=== PATIENT | female | born 1955 | race Caucasian/White ===

== ENCOUNTER 2017-12-31 21:37 | Emergency (ER) | payer OTHER ==
[~2017-12-31] VITALS: Ht 165.1 cm; Wt 71.8 kg
--- NOTE | 2017-12-31 21:48 | ED.ADGEN ---
Adult General Chief Complaint Chief Complaint ".. I slipped and fell on the sidewalk at [employer]..." " I think my knee is dislocated..." ( Rt.) HPI HPI Patient is a 62 year old female who presents with above hx and complaints. Pt. has obvious dislocated and fractured patella. Knee is locked in 40-45 degrees. Edema and contusion to skin of knee. . Pt. complaints of 10/10 pain. Pt. denies any dizziness or syncopal. States she just tripped. 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 Pt. then received chemo therapy and bone marrow transplant in 2017. Pt. has continue cancer chemo tx. every other Tuesday. Pt. states cancer was found on physical exam for work. No metastatic lesions have been reportedly found. Pt. has follow at [facility] and associated clinics. Pt. does have some chronic neuropathy for chemo therapy. Review of Systems Review of Systems Constitutional: Denies fever or chills [] Eyes: Denies change in visual acuity, redness, or eye pain [] HENT: Denies nasal congestion or sore throat [] Respiratory: Denies cough or shortness of breath [] Cardiovascular: No additional information not addressed in HPI [] GI: Denies abdominal pain, nausea, vomiting, bloody stools or diarrhea [] : Denies dysuria or hematuria [] Musculoskeletal: Denies back pain or joint pain []Except complaints of severe Rt. knee pain as per HPI Integument: Denies rash or skin lesions [] Neurologic: Denies headache, focal weakness or sensory changes [] Endocrine: Denies polyuria or polydipsia [] All other systems were reviewed and found to be within normal limits, except as documented in this note. Family History Family History Non contributory Current Medications Current Medications Current Medications Medications (Trade) Dose Ordered Sig/Alexa Start Time Stop Time Status Last Admin Dose Admin Lactated Ringer's 1,000 ml @ 1,000 mls/hr Q1H 12/31/17 22:00 12/31/17 22:59 DC 12/31/17 22:00 1,000 MLS/HR Morphine Sulfate (Morphine 10mg Syringe) 10 mg 1X ONCE 12/31/17 22:15 12/31/17 22:16 DC 12/31/17 22:33 10 MG Morphine Sulfate (Morphine 4mg Syringe) 4 mg STK-MED ONCE 12/31/17 22:25 12/31/17 22:26 DC Ondansetron HCl (Zofran Odt) 8 mg 1X ONCE 01/01/18 00:15 01/01/18 01:02 DC 01/01/18 00:16 8 MG Propofol 20 ml @ 0 mls/hr 1X ONCE 12/31/17 22:15 12/31/17 22:16 DC 12/31/17 23:16 1 MLS/HR Tetanus/ Diphtheria Toxoids Adsorbed (Tenivac Vial) 0.5 ml ONCE ONCE 12/31/17 22:15 12/31/17 22:16 DC Allergies Allergies Allergies Coded Allergies Type Severity Reaction Last Updated Verified aspirin Allergy Severe Anaphylaxis 12/31/17 Yes Physical Exam Physical Exam Constitutional: in severe distress, non-toxic appearance. [] HENT: Normocephalic, atraumatic, bilateral external ears normal, oropharynx moist, no oral exudates, nose normal. Poor dentition. Eyes: PERRLA, EOMI, conjunctiva normal, no discharge. [] Glasses. Neck: Normal range of motion, no tenderness, supple, no stridor. [] Cardiovascular:Heart rate regular rhythm, no murmur [] Lungs & Thorax: Bilateral breath sounds equal at apex. auscultation [] Abdomen: Bowel sounds normal, soft, no tenderness, no masses, no pulsatile masses. Scar. Skin: Warm, dry, no erythema, no rash. Abrasion of Rt knee. Back: No tenderness, no CVA tenderness. [] Extremities: No tenderness, no cyanosis, no clubbing, ROM intact, no edema. [] Rt. arm weakness- chronic defect. Rt. Knee pain as per HPI. Neurologic: Alert and oriented X 3, unable to bend or extend Rt. Knee-locked in position. decreased plantar sensory function, no focal deficits noted from base line per pt. except severe knee pain. Psychologic: Affect anxious, judgement normal, mood depressed. Current Patient Data Vital Signs Vital Signs Date Time Temp Pulse Resp B/P (MAP) Pulse Ox O2 Delivery O2 Flow Rate FiO2 01/01/18 01:00 72 14 113/65 (81) 96 Room Air 01/01/18 00:30 98.2 12/31/17 23:40 2.0 Lab Results Laboratory Tests Test 12/31/17 21:50 12/31/17 23:55 White Blood Count 7.4 x10^3/uL (4.0-11.0) Red Blood Count 4.33 x10^6/uL (3.50-5.40) Hemoglobin 13.0 g/dL (12.0-15.5) Hematocrit 38.2 % (36.0-47.0) Mean Corpuscular Volume 88 fL (79-100) Mean Corpuscular Hemoglobin 30 pg (25-35) Mean Corpuscular Hemoglobin Concent 34 g/dL (31-37) Red Cell Distribution Width 13.6 % (11.5-14.5) Platelet Count 200 x10^3/uL (140-400) Neutrophils (%) (Auto) 48 % (31-73) Lymphocytes (%) (Auto) 42 % (24-48) Monocytes (%) (Auto) 7 % (0-9) Eosinophils (%) (Auto) 3 % (0-3) Basophils (%) (Auto) 0 % (0-3) Neutrophils # (Auto) 3.6 x10^3uL (1.8-7.7) Lymphocytes # (Auto) 3.1 x10^3/uL (1.0-4.8) Monocytes # (Auto) 0.5 x10^3/uL (0.0-1.1) Eosinophils # (Auto) 0.2 x10^3/uL (0.0-0.7) Basophils # (Auto) 0.0 x10^3/uL (0.0-0.2) Prothrombin Time 10.4 SEC (9.4-11.4) Prothrombin Time INR 1.0 (0.9-1.1) PTT 24 SEC (23-33) Sodium Level 144 mmol/L (136-145) Potassium Level 3.6 mmol/L (3.5-5.1) Chloride Level 106 mmol/L (98-107) Carbon Dioxide Level 28 mmol/L (21-32) Anion Gap 10 (6-14) Blood Urea Nitrogen 16 mg/dL (7-20) Creatinine 1.4 mg/dL (0.6-1.0) H Estimated GFR (Cockcroft-Gault) 37.9 Glucose Level 115 mg/dL (70-99) H Calcium Level 8.3 mg/dL (8.5-10.1) L Total Bilirubin 0.9 mg/dL (0.2-1.0) Direct Bilirubin 0.2 mg/dL (0.0-0.2) Aspartate Amino Transferase (AST) 16 U/L (15-37) Alanine Aminotransferase (ALT) 15 U/L (14-59) Alkaline Phosphatase 81 U/L (46-116) Total Protein 7.2 g/dL (6.4-8.2) Albumin 3.6 g/dL (3.4-5.0) Urine Collection Type Void Urine Color Straw Urine Clarity Hazy Urine pH 6.0 Urine Specific Buhl 1.015 Urine Protein Neg (NEG-TRACE) Urine Glucose (UA) Neg mg/dL (NEG) Urine Ketones (Stick) Neg mg/dL (NEG) Urine Blood Mod (NEG) Urine Nitrite Neg (NEG) Urine Bilirubin Neg (NEG) Urine Urobilinogen Dipstick 0.2 mg/dL (0.2 mg/dL) Urine Leukocyte Esterase Small (NEG) Urine RBC 6-10 /HPF (0-2) Urine WBC 11-20 /HPF (0-4) Urine Squamous Epithelial Cells Few /LPF Urine Bacteria Mod /HPF (0-FEW) Urine Opiates Screen Pos (NEG) Urine Methadone Screen Neg (NEG) Urine Barbiturates Neg (NEG) Urine Phencyclidine Screen Neg (NEG) Urine Amphetamine/Methamphetamine Neg (NEG) Urine Benzodiazepines Screen Neg (NEG) Urine Cocaine Screen Neg (NEG) Urine Cannabinoids Screen Neg (NEG) Urine Ethyl Alcohol Neg (NEG) EKG EKG My interpretation of EKG shows a sinus rhythm at 77 bpm. She does have occasional PVC. This was nonspecific contour changes in anterior lateral leads. There is some baseline artifact. No findings acute STEMI of contralateral changes. Radiology/Procedures Radiology/Procedures My interpretation of chest x-ray shows borderline cardiac silhouette. No acute cardiopulmonary findings. My interpretation of knee films shows knees flexed and has an acute transverse fracture of the patella. My interpretation of post reduction films and splinting shows patella fracture with some reduction in fracture fragment separation. See formal report when available.[] Course & Med Decision Making Course & Med Decision Making Pertinent Labs and Imaging studies reviewed. (See chart for details) 1. Fall because of Tripping. 2. Fracture and Dislocated Patella 3. Hx. of Osteo carcinoma of Spine- Radiation and Chemo therapy- every other Tuesday 4. Elevated Creatine 5. Possible UTI- Elevated WBC, Neg. Nitrates- Squamous [] Final Impression Final Impression Conscious Sedation- Reduction and Splint Placement- Rt. Knee: See Sedation report. Pt. has hx. of Tea at approximately 4 hrs. ago. Mallampati 1-2, Poor dentition. Pt. received 41 mg of propofol in titrated increments. Blocked knee was reduced and splinted. Distal neurovascular intact post. Capillary refill less than 3 seconds in toes and equal to left foot. Pt. report marked reduction in pain. Discussed presentation, testing and treatment plan with - [facility] she will accept pt in transfer. Dr. Laurent Hayden. advise he will take her to surgery at 0800. Keep pt. NPO Pt. to go to [facility]. Relative Gabrielle Stephens can speak for pt. [phone] Landen Disclaimer Landen Disclaimer This electronic medical record was generated, in whole or in part, using a voice recognition dictation system. NICOLE LAU MD December 31, 2017 21:48
[2017-12-31] MEDS ORDERED: IV RINGERS SOLUTION,LACTATED 1,000 ML IV SCH (22:00)
[2017-12-31] MEDS ORDERED: [UNRECOGNIZED DRUG - OTHER] (22:05)
[2017-12-31] MEDS ORDERED: CHEMO DRUGS (22:05)
[2017-12-31] MEDS ORDERED: vitamins (22:05)
[2017-12-31 22:10] LABS: BASO % 0 % (0-3); EOS # 0.2 x10^3/uL (0.0-0.7); EOS % 3 % (0-3); HEMATOCRIT 38.2 % (36.0-47.0); LYMPH # 3.1 x10^3/uL (1.0-4.8); LYMPH % 42 % (24-48); MEAN CORPUSCULAR HEMOGLOBIN 30 pg (25-35); MEAN CORPUSCULAR HGB CONC 34 g/dL (31-37); MEAN CORPUSCULAR VOLUME 88 fL (79-100); MONO # 0.5 x10^3/uL (0.0-1.1); MONO % 7 % (0-9); NEUT # 3.6 x10^3uL (1.8-7.7); NEUT % 48 % (31-73); PLATELET COUNT 200 x10^3/uL (140-400); RED BLOOD COUNT 4.33 x10^6/uL (3.50-5.40); RED CELL DISTRIBUTION WIDTH 13.6 % (11.5-14.5); WHITE BLOOD COUNT 7.4 x10^3/uL (4.0-11.0)
[2017-12-31] MEDS ORDERED: PROPOFOL 20 ML IV ONE (22:15)
[2017-12-31] MEDS ORDERED: TETANUS AND DIPHTHERIA TOX/PF 0.5 ML VIAL. VAX IM ONE (22:15)
[2017-12-31] MEDS ORDERED: MORPHINE SULFATE 10 MG/ML SYRINGE. SQ ONE (22:15)
[2017-12-31 22:21] LABS: ALBUMIN 3.6 g/dL (3.4-5.0); CALCIUM 8.3 mg/dL (8.5-10.1); CREATININE 1.4 mg/dL (0.6-1.0); DIRECT BILIRUBIN 0.2 mg/dL (0.0-0.2); GFR 37.9; POTASSIUM 3.6 mmol/L (3.5-5.1); TOTAL BILIRUBIN 0.9 mg/dL (0.2-1.0); TOTAL PROTEIN 7.2 g/dL (6.4-8.2)
[2017-12-31] MEDS ORDERED: MORPHINE SULFATE 4 MG/ML DISP.SYRIN. ONE (22:25)
--- NOTE | 2017-12-31 23:19 | RAD ---
Right knee AP and lateral x-rays HISTORY: Right knee injury and pain, postreduction. FINDINGS: The knee is fixed in flexion limiting AP imaging. There is an acute traumatic transverse fracture of the patella with the superior and inferior fracture fragments distracted by 6 cm across the distal femur. No fracture of the distal femur, proximal tibia or proximal fibula at the knee evident. IMPRESSION: Acute traumatic distracted fracture of the patella. AP chest x-ray HISTORY: Pain. FINDINGS: Heart size upper limits of normal. Mediastinal silhouette is normal. No pneumothorax, pulmonary opacities or pleural effusions. The bones are unremarkable. IMPRESSION: No acute process in the chest. Electronically signed by: Alejo Snider MD (12/31/2017 11:16 PM) [facility]
--- NOTE | 2018-01-01 00:07 | RAD ---
Right knee AP and lateral x-rays 2 views HISTORY: Postreduction right knee FINDINGS: Acute traumatic mid patella fracture with distraction of the fracture fragments by 4.5 cm, a slight improvement since the prior study. The distal femur and proximal tibia fibula are intact. IMPRESSION: Acute traumatic distracted patella fracture. Electronically signed by: Alejo Snider MD (01/01/2018 12:04 AM) [facility]
[2018-01-01] MEDS ORDERED: ONDANSETRON ODT 4 MG TAB.RAPDIS ONE (00:10)
[2018-01-01] MEDS ORDERED: ONDANSETRON ODT 4 MG TAB.RAPDIS PO ONE (00:15)
[2018-01-01 00:22] LABS: AMPHETAMINE/METHAMPHETAMINE NEG (NEG); BARBITURATES NEG (NEG); BENZODIAZEPINES NEG (NEG); CANNABINOIDS NEG (NEG); COCAINE NEG (NEG); METHADONE NEG (NEG); OPIATES POS (NEG); PHENCYCLIDINE NEG (NEG)
[2018-01-01 00:24] LABS: BACTERIA,URINE MOD /HPF (0-FEW); BILIRUBIN,URINE NEG (NEG); CLARITY,URINE HAZY; COLOR,URINE STRAW; GLUCOSE,URINE NEG (NEG); NITRITE,URINE NEG (NEG); SQUAMOUS EPITHELIAL CELL,UR FEW /LPF; UROBILINOGEN,URINE 0.2 mg/dL (0.2 mg/dL)
--- NOTE | 2018-01-01 00:29 | EKG ---
[address] [address] Test Date: 2017-12-31 Test Time: 21:56:55 Pat Name: MONSTER MENESES Department: Room: Gender: F Optimization Analyst: JAYLA : [id number] Requested By: NICOLE LAU Order Number: [id number] Reading MD: Measurements Intervals [place] Rate: 77 P: 66 NH: 200 QRS: 15 QRSD: 96 T: 64 QT: 404 QTc: 459 Interpretive Statements SINUS RHYTHM VENTRICULAR PREMATURE COMPLEX(ES) QRS(T) CONTOUR ABNORMALITY CONSIDER ANTEROLATERAL MYOCARDIAL DAMAGE ABNORMAL ECG RI6.01 No previous ECG available for comparison
[2018-01-01 01:00] VITALS: BP 113/65
== END 2018-01-01 01:20 | disposition short-term general hospital (02) ==
LOC: ER 21:37
DX: S82.031A Displaced transverse fracture of right patella, initial encounter for closed fracture (principal); R79.89 Other specified abnormal findings of blood chemistry; Z94.81 Bone marrow transplant status; Z88.6 Allergy status to analgesic agent; W01.198A Fall on same level from slipping, tripping and stumbling with subsequent striking against other object, initial encounter; Y93.89 Activity, other specified; Y99.8 Other external cause status; Y92.89 Other specified places as the place of occurrence of the external cause
CPT/HCPCS: 27560; 36415; 71045; 73560; 80048; 80076; 80307; 81001; 85025; 85610; 85730; 87086; 93005; 96372; 99285; J2270; J2704; J7120; Q0162; 99152; G0479